=== PATIENT | male | born 1975 | race Caucasian/White ===

== ENCOUNTER 2018-11-26 12:41 | Emergency (ER) | payer OTHER ==
[~2018-11-26] VITALS: Ht 185.4 cm; Wt 84.0 kg
[2018-11-26 13:35] LABS: HEMATOCRIT 40.9 % (39.0-50.0); HEMOGLOBIN 13.9 g/dl (14.0-18.0); IMMATURE GRANULOCYTES 0.2 % (0.0-5.0); MEAN CELL VOLUME 83.5 fL CALC (80.0-100.0); MEAN CORPUSCULAR HGB 28.4 pG CALC (26.0-32.0); NEUT# 1.86 thou/uL (1.82-7.42); RED BLOOD COUNT 4.9 mill/uL (4.70-6.10); RED CELL DISTRI WIDTH 13.6 % (11.5-15.5)
[2018-11-26 14:06] LABS: ANION GAP 15 (6-22 (CALC)); BUN 13 mg/dL (9-20); BUN/CREATININE RATIO 14 (12-20 (CALC)); CARBON DIOXIDE 24 mmol/l (22-30); CHLORIDE 103 mmol/l (95-108); CREATININE 0.9 mg/dL (0.7-1.3); GFR > 60 ML/MIN (>=60 (CALC)); GFR FOR AFR.AMER. > 60 ML/MIN (>=60 (CALC)); POTASSIUM 4.2 mmol/l (3.5-5.1); SODIUM 138 mmol/l (137-146)
[2018-11-26 16:53] VITALS: BP 131/71
[2018-11-26] MEDS ORDERED: ALPRAZOLAM0.5 M2 PO (17:05)
[2018-11-26] MEDS ORDERED: DILTIAZEM HCL120 M1 PO (17:06)
[2018-11-26] MEDS ORDERED: METOPROLOL ER SUCCIN (17:06)
[2018-11-26] MEDS ORDERED: ROSUVASTATIN CAL5 MG PO (17:06)
[2018-11-26 17:25] LABS: BARBITURATES NEGATIVE (NEGATIVE); COCAINE NEGATIVE (NEGATIVE); METHADONE NEGATIVE (NEGATIVE); OXCYCODONE NEGATIVE (NEGATIVE); TETRAHYDROCANNABIONOL NEGATIVE (NEGATIVE); TRICYLIC ANTIDEPRESSANTS NEGATIVE (NEGATIVE)
== END 2018-11-26 17:04 | disposition home or self-care (01) | DRG 880 ==
LOC: ED 12:41
PROVIDERS: Family Medicine
DX: F41.9 Anxiety disorder, unspecified (principal); R07.9 Chest pain, unspecified